=== PATIENT | male | born 1995 | race Caucasian/White ===

== ENCOUNTER 2017-04-05 00:30 | Emergency (ER) | payer BC ==
[2017-04-05] MEDS ORDERED: Ibuprofen 800 MG Tab PO ONE (00:47)
--- NOTE | 2017-04-05 00:56 | EDM.PDOC ---
ED HPI GENERAL MEDICAL PROBLEM - General Chief Complaint: Upper Extremity Injury/Pain Stated Complaint: LEFT SHOULDER PAIN Time Seen by Provider: 04/05/17 00:32 Source of Information: Reports: Patient History Limitations: Reports: No Limitations - History of Present Illness INITIAL COMMENTS - FREE TEXT/NARRATIVE: HISTORY AND PHYSICAL: History of present illness: [21-year-old male complaining of left shoulder pain after hockey injury hours ago. Patient states he was hit and had immediate pain in the left shoulder area.He has been able to use his arm but with pain in the area of his collarbone There is some swelling and hurts to touch. Denies head injury loss of consciousness chest pain shortness of breath, elbow or wrist pain. No spinal pain and patient is able to ambulate without difficulty. He has had a similar previous injury to his right acromioclavicular joint Review of systems: As per history of present illness and below otherwise all systems reviewed and negative. Past medical history: As per history of present illness and as reviewed below otherwise noncontributory. Surgical history: As per history of present illness and as reviewed below otherwise noncontributory. Social history: No reported history of drug or alcohol abuse. Family history: As per history of present illness and as reviewed below otherwise noncontributory. Physical exam:well-appearing male no acute distress muscular and healthy- appearing.Soft tissue swelling in the distribution of the left acromioclavicular joint.No subclavicular illness or empty glenoid fossa on the left. Nontender C-spine with normal painless range of motion. No chest wall tenderness. No mid and proximal clavicular tenderness and humerus unremarkable HEENT: Normocephalic, atraumatic, pupils normal and symmetrical, supple neck, no meningismus, normal color Lungs: Normal and symmetrical chest wall excursion bilateral with no tachypnea or increased work of breathing, grossly normal chest exam Heart: No tachycardia in triage Abdomen: Normal-appearing, nondistended, no visible mass or asymmetry Pelvis: Normal-appearing Genitourinary: Deferred Rectal exam: Deferred Extremities: Atraumatic, normal use and range of motion, no visible evidence of gross neurovascular compromise Neuro: Awake, alert, oriented. Normal and appropriate mental status. Cranial nerves grossly unremarkable. Motor function normal. Nonfocal neurologic exam. Diagnostics: [X-ray left before meals joint left shoulder and left clavicle all unremarkable interpreted by me report reviewed] Therapeutics: [Anti-inflammatory and analgesic given by mouth] Impression: [] Plan: [Signs and symptoms consistent with left before meals injury confirmed by no visible fractures on x-ray. Patient aware to use splint ice NSAIDs and follow- up with PCP and Ortho Evra as needed.] Definitive disposition and diagnosis as appropriate pending reevaluation and review of above. left clavicle and shoulder Pain Score (Numeric/FACES): 7 - Related Data Allergies Allergy/AdvReac Type Severity Reaction Status Date / Time Dairy Products AdvReac Abdominal Verified 04/05/17 00:48 Pain gluten AdvReac Abdominal Verified 04/05/17 00:48 Pain soy AdvReac Abdominal Verified 04/05/17 00:48 Pain dairy Allergy Acid Reflux Uncoded 04/05/17 00:48 Home Meds: Home Meds Methylphenidate HCl [Methylphenidate ER] 10 mg PO DAILY 04/05/17 [History] Methylphenidate HCl [Methylphenidate ER] 36 mg PO DAILY 04/05/17 [History] Review of Systems - Review of Systems Review Of Systems: See Below (History of present illness) ED EXAM, GENERAL - Physical Exam Exam: See Below (History of present illness) Course - Vital Signs Last Recorded V/S: Last Vital Signs Temp 36.6 C 04/05/17 00:53 Pulse 63 04/05/17 00:53 Resp 16 04/05/17 00:53 BP 124/56 L 04/05/17 00:53 Pulse Ox 100 04/05/17 00:53 - Orders/Labs/Meds Orders: Active Orders 24 hr Category Date Time Status AC Joint w wo Weight Bi [CR] Stat Exams 04/05/17 00:46 Taken Clavicle Lt [CR] Stat Exams 04/05/17 00:47 Ordered Shoulder Comp Lt [CR] Stat Exams 04/05/17 00:49 Taken Meds: Medications Discontinued Medications Generic Name Dose Route Start Last Admin Trade Name Freq PRN Reason Stop Dose Admin Hydrocodone Bitart/Acetaminophen 1 tab 04/05/17 02:08 04/05/17 02:44 Sandwich 325-5 Mg PO 04/05/17 02:09 Not Given ONETIME ONE Ibuprofen 800 mg 04/05/17 00:47 04/05/17 00:57 Motrin PO 04/05/17 00:48 800 mg ONETIME ONE Administration Departure - Departure Time of Disposition: 02:11 Disposition: Home, Self-Care 01 Condition: Good Clinical Impression: Injury of left acromioclavicular joint, Left shoulder pain - Discharge Information Instructions: Shoulder Pain, [id number] Referrals: PCP,None [Primary Care Provider] - Forms: ED Department Discharge Additional Instructions: your x-rays show no fractures or dislocation. Your exam and clinical findings suggest that you have a left acromioclavicular joint injury also known as a "shoulder separation. " wear sling on your left arm only as needed for comfort and try to use the arm and shoulder is much as possible. Apply ice for the next one to 2 days and take 800 mg of ibuprofen every 6 hours. Use Sandwich one every 6 hours as needed for pain but be sure not to drink any alcohol while taking this medicine as it could result in excessive sedation. follow-up with your Dr. in several days for reevaluation and referral to orthopedics as needed. Avoid sports or strenuous use of your left arm until cleared by your doctor or the orthopedic doctor. - My Orders Last 24 Hours: My Active Orders 04/05/17 00:46 AC Joint w wo Weight Bi [CR] Stat 04/05/17 00:47 Clavicle Lt [CR] Stat 04/05/17 00:49 Shoulder Comp Lt [CR] Stat - Assessment/Plan Last 24 Hours: My Active Orders 04/05/17 00:46 AC Joint w wo Weight Bi [CR] Stat 04/05/17 00:47 Clavicle Lt [CR] Stat 04/05/17 00:49 Shoulder Comp Lt [CR] Stat
[2017-04-05] MEDS ORDERED: Acetaminophen/HYDROcodone 325-5 MG Tab PO ONE (02:08)
--- NOTE | 2017-04-05 10:52 | CR ---
EXAM DATE: 04/05/17 PATIENT'S AGE: 21 Patient: BREEZY FLORES Facility: [place], [place] Site . Site : 1995 Study: XRay Extremity AC Joints [id number]/12/2017 1:58:33 AM Ordering Physician: Kade Ascencio Final Report: Indication: Left shoulder pain. Hockey injury. Technique: Bilateral acromioclavicular joints without and with weights. Comparison: Left shoulder radiographs same day. Findings: The left coracoclavicular distance is approximately 13 mm. Right coracoclavicular distance is 10 mm. This finding is similar in appearance without and with the weights. No evidence of acute fracture. No additional osseous abnormality. Impression: Asymmetric widening of the left coracoclavicular distance is similar in appearance without and with weights. Findings could be related to normal variation and/ or imaging technique. MRI could be considered if further workup for soft tissue injury is deemed necessary. Dictated by Jaime Crockett MD @ 04/05/2017 2:12:42 AM Dictated by: Jaime Crockett MD @ 04/05/2017 02:12:56 (Electronic Signature) Report Signed by Proxy. BENNETT
--- NOTE | 2017-04-05 10:53 | CR ---
EXAM DATE: 04/05/17 PATIENT'S AGE: 21 Patient: BREEZY FLORES Facility: [place], [place] Site . Site : 1995 Study: XRay Extremity Clavicle [id number]/12/2017 1:59:30 AM Ordering Physician: Kade Ascencio Final Report: Indication: Left shoulder pain. Hockey injury. Technique: Left clavicle two views. Comparison: Left shoulder same day. Findings: No evidence of acute fracture or dislocation. No additional osseous abnormality. Soft tissues as imaged are unremarkable. Impression: No acute osseous abnormality. Dictated by Jaime Crockett MD @ 04/05/2017 2:08:23 AM Dictated by: Jaime Crockett MD @ 04/05/2017 02:09:12 (Electronic Signature) Report Signed by Proxy. [facility]
--- NOTE | 2017-04-05 10:54 | CR ---
EXAM DATE: 04/05/17 PATIENT'S AGE: 21 Patient: BREEZY FLORES Facility: [place], [place] Site . Site : 1995 Study: XRay Shoulder Left [id number]/12/2017 2:00:43 AM Ordering Physician: Kade Ascencio Final Report: Indication: Left shoulder pain. Hockey injury. Limited range of motion. Technique: Left shoulder five views. Comparison: Left clavicle same day. Findings: No acute fracture or dislocation. No additional osseous abnormality. Soft tissues as imaged are unremarkable. Impression: No acute osseous abnormality. Dictated by Jaime Crockett MD @ 04/05/2017 2:05:02 AM Dictated by: Jaime Crockett MD @ 04/05/2017 02:05:10 (Electronic Signature) Report Signed by Proxy. [facility]
== END 2017-04-05 02:24 | disposition home or self-care (01) ==
LOC: MW.ED 00:30
DX: S49.92XA Unspecified injury of left shoulder and upper arm, initial encounter (principal); Z91.011 Allergy to milk products; W22.8XXA Striking against or struck by other objects, initial encounter
CPT/HCPCS: 73000; 73030; 73050; 99283; A9270